=== PATIENT | female | born 1995 | race African-American/Black ===

== ENCOUNTER 2017-07-10 17:15 | Emergency (ER) | payer MEDICAID ==
[~2017-07-10] VITALS: Ht 165.1 cm; Wt 63.6 kg
[~2017-07-10 17:15] MED LIST: CEPHALEXIN500 M1 PO; IBU800 M1 PO; NORCOELIX PO; PERCOCET 325 MG1 TA2 PO; ZOFRAN ODT8 MG PO
[2017-07-10 17:30] VITALS: BP 161/101; PULSE 123; TEMP 98.9
== END 2017-07-10 19:41 | disposition home or self-care (01) ==
LOC: COL.ER 17:15
DX: J06.9 Acute upper respiratory infection, unspecified (principal); F17.210 Nicotine dependence, cigarettes, uncomplicated

== ENCOUNTER 2018-05-18 18:27 | Emergency (ER) | payer SELFPAY ==
[~2018-05-18] VITALS: Ht 165.1 cm; Wt 70.5 kg
[2018-05-18 19:08] VITALS: BP 137/92; TEMP 98.9
[2018-05-18 20:04] LABS: BASO % 0.3 % (0.0-2.0); EOS # 0.2 (0.0-0.7); EOS % 3.4 % (0-4.0); GRAN # 3.2 (1.4-6.5); GRAN % 52.2 % (42.2-75.2); HEMATOCRIT 32.3 % (35.0-45.0); HEMOGLOBIN 9.7 g/dl (12.0-15.0); LYMPH # 2.2 (1.2-3.4); LYMPH % 34.8 % (20.0-51.0); MEAN CELL VOLUME 73 fl (80.0-95.0); MEAN CORPUSCULAR HEMOGLOBIN 22 pg (26.0-32.0); MEAN CORPUSCULAR HGB CONC 30 g/dl (33.0-37.0); MEAN PLATELET VOLUME 9.4 fl (7.4-10.4); MONO # 0.6 (0.1-0.6); MONO % 9.1 % (1.7-9.3); PLATELET COUNT 397 K/mm3 (130-400); RED BLOOD COUNT 4.45 M/mm3 (4.10-5.30); REDCELL DISTRIBUTION WIDTH-CV 17.7 % (11.5-14.5)
[2018-05-18 20:18] LABS: ALBUMIN 3.9 gm/dL (3.5-5.0); BILIRUBIN,TOTAL 0.1 mg/dL (0.0-1.0); CALCIUM 9.1 mg/dL (8.4-10.2); CREATININE, serum 0.71 mg/dL (0.52-1.25); TOTAL PROTEIN 8.1 gm/dL (6.4-8.2)
[2018-05-18] MEDS ORDERED: CELEXA 20MG20 MG/TAB PO ×2 (20:23→21:15)
[2018-05-18] MEDS ORDERED: LEVOXYL0.088 MG PO (20:24)
[2018-05-18] MEDS ORDERED: ATARAX 25MG25 MG/TAB PO ×2 (20:25→21:22)
[2018-05-18 20:48] LABS: TSH w REFLEX 8.77 uIU/mL (0.465-4.680)
[2018-05-18] MEDS ORDERED: CELEXA10 MG PO (21:22)
[2018-05-18] MEDS ORDERED: SYNTHROID0.088 MG/T PO (21:22)
[2018-05-18 21:43] VITALS: PULSE 85
== END 2018-05-18 21:43 | disposition home or self-care (01) ==
LOC: COL.ER 18:27
PROVIDERS: Nurse Practitioner
DX: F32.9 Major depressive disorder, single episode, unspecified (principal); F41.9 Anxiety disorder, unspecified; M54.6 Pain in thoracic spine; E03.9 Hypothyroidism, unspecified; F17.210 Nicotine dependence, cigarettes, uncomplicated; Z23 Encounter for immunization

== ENCOUNTER 2018-06-04 07:27 | Emergency (ER) | payer SELFPAY ==
[~2018-06-04] VITALS: Ht 167.6 cm; Wt 70.5 kg
[~2018-06-04 07:27] MED LIST changes: +ATARAX 25MG25 MG/TAB PO; +CELEXA 20MG20 MG/TAB PO; +CELEXA10 MG PO; +LEVOXYL0.088 MG PO; +SYNTHROID0.088 MG/T PO
[2018-06-04 07:31] VITALS: TEMP 98.6
[2018-06-04] MEDS ORDERED: CELEXA 20MG20 MG/TAB PO (07:46)
[2018-06-04] MEDS ORDERED: SYNTHROID0.088 MG/T PO (07:46)
[2018-06-04] MEDS ORDERED: ATARAX 25MG25 MG/TAB PO (07:46)
[2018-06-04] MEDS ORDERED: CELEXA10 MG PO (07:46)
[2018-06-04 08:30] VITALS: BP 114/81; PULSE 93
== END 2018-06-04 08:30 | disposition home or self-care (01) ==
LOC: COL.ER 07:27
DX: M94.0 Chondrocostal junction syndrome [Tietze] (principal); Z76.0 Encounter for issue of repeat prescription

== ENCOUNTER 2018-06-29 09:42 | Emergency (ER) | payer SELFPAY ==
[~2018-06-29] VITALS: Ht 152.4 cm; Wt 68.2 kg
[2018-06-29 09:48] VITALS: BP 139/96; PULSE 106; TEMP 97.8
[2018-06-29] MEDS ORDERED: CEPHALEXIN500 M1 PO (10:04)
== END 2018-06-29 10:13 | disposition home or self-care (01) ==
LOC: COL.ER 09:42
DX: S01.511A Laceration without foreign body of lip, initial encounter (principal); Y04.8XXA Assault by other bodily force, initial encounter

== ENCOUNTER 2018-07-13 23:27 | Emergency (ER) | payer SELFPAY ==
[~2018-07-13] VITALS: Ht 167.6 cm; Wt 63.6 kg
[2018-07-13 23:45] VITALS: TEMP 98.6
[2018-07-14 00:42] LABS: COLLECTION METHOD CLEAN CATCH
[2018-07-14 00:51] LABS: MUCOUS Present /lpf; PH 5 (5-8); URINE APPEARANCE Hazy; URINE BACTERIA Occasional /hpf; URINE BILIRUBIN Negative (NEGATIVE); URINE BLOOD Negative (NEGATIVE); URINE COLOR Yellow; URINE GLUCOSE Negative (NEGATIVE); URINE KETONE Negative (NEGATIVE); URINE LEUKOCYTE ESTERASE Negative (NEGATIVE); URINE NITRATE Negative (NEGATIVE); URINE PROTEIN(semi-quant) 2+ (NEGATIVE); URINE RBC 0-2 /hpf
[2018-07-14 00:52] LABS: BASO % 0.2 % (0.0-2.0); EOS # 0.1 (0.0-0.7); GRAN # 2.9 (1.4-6.5); GRAN % 56.5 % (42.2-75.2); LYMPH # 1.6 (1.2-3.4); LYMPH % 31.7 % (20.0-51.0); MEAN CELL VOLUME 70 fl (80.0-100.0); MEAN CORPUSCULAR HGB CONC 29 g/dl (33.0-37.0); MEAN PLATELET VOLUME 9.7 fl (7.4-10.4); MONO # 0.5 (0.1-0.6); MONO % 9.4 % (1.7-9.3); PLATELET COUNT 295 K/mm3 (130-400); RED BLOOD COUNT 4.79 M/mm3 (4.10-5.30); REDCELL DISTRIBUTION WIDTH-CV 19.3 % (11.5-14.5)
[2018-07-14 00:54] LABS: TRICYCLIC ANTIDEPRESS URINE NEGATIVE
[2018-07-14 00:56] LABS: HEMATOCRIT 33.4 % (37.0-47.0); HEMOGLOBIN 9.7 g/dl (12.5-16.0); MEAN CORPUSCULAR HEMOGLOBIN 20 pg (27.0-31.0)
[2018-07-14 01:11] LABS: ALANINE AMINOTRANSFERASE 9 U/L (9-52); ALBUMIN 4.2 gm/dL (3.5-5.0); ALKALINE PHOSPHATASE 109 U/L (50-136); ANION GAP 7 mmol/L (7-16); AST,SGOT 23 U/L (15-37); BILIRUBIN,TOTAL 0.2 mg/dL (0.0-1.0); BLOOD UREA NITROGEN 7 mg/dL (7-17); CALCIUM 9.4 mg/dL (8.4-10.2); CARBON DIOXIDE 26 mmol/L (22-30); CHLORIDE 106 mmol/L (98-107); CREATININE, serum 0.71 mg/dL (0.52-1.25); GLUCOSE 93 mg/dL (74-106); POTASSIUM 3.4 mmol/L (3.4-5.0); SODIUM 138 mmol/L (137-145); TOTAL PROTEIN 8.4 gm/dL (6.4-8.2)
[2018-07-14 01:12] LABS: ACETAMINOPHEN < 10 ug/mL (10-30); ALCOHOL(ethanol),MEDICAL < 10 mg/dL; SALICYLATE < 1.0 mg/dL
[2018-07-14] MEDS ORDERED: ATARAX 25MG25 MG/TAB PO (02:05)
[2018-07-14] MEDS ORDERED: CELEXA10 MG PO (02:06)
[2018-07-14] MEDS ORDERED: SYNTHROID0.088 MG/T PO (02:06)
[2018-07-14 03:47] VITALS: BP 104/63; PULSE 84
[2018-07-14] MEDS ORDERED: MACROBID 1100 MG/CAP PO (03:50)
== END 2018-07-14 04:00 | disposition home or self-care (01) ==
LOC: COL.ER 23:27
PROVIDERS: Emergency Medicine
DX: S40.812A Abrasion of left upper arm, initial encounter (principal); F41.9 Anxiety disorder, unspecified; N39.0 Urinary tract infection, site not specified; F32.9 Major depressive disorder, single episode, unspecified; F17.210 Nicotine dependence, cigarettes, uncomplicated; X78.9XXA Intentional self-harm by unspecified sharp object, initial encounter

== ENCOUNTER 2018-11-12 12:35 | Emergency (ER) | payer SELFPAY ==
[~2018-11-12] VITALS: Ht 165.1 cm; Wt 63.6 kg
[~2018-11-12 12:35] MED LIST changes: +MACROBID 1100 MG/CAP PO
[2018-11-12 12:40] VITALS: BP 123/72; PULSE 85; TEMP 98.5
[2018-11-12 13:31] LABS: BASO % 0.2 % (0.0-2.0); EOS # 0.1 (0.0-0.7); EOS % 2.3 % (0-4.0); GRAN # 3.6 (1.4-6.5); GRAN % 64.4 % (42.2-75.2); HEMOGLOBIN 11.1 g/dl (12.5-16.0); LYMPH # 1.3 (1.2-3.4); LYMPH % 22.9 % (20.0-51.0); MEAN CELL VOLUME 77 fl (80.0-100.0); MEAN CORPUSCULAR HEMOGLOBIN 23 pg (27.0-31.0); MEAN CORPUSCULAR HGB CONC 31 g/dl (33.0-37.0); MEAN PLATELET VOLUME 9.5 fl (7.4-10.4); MONO # 0.6 (0.1-0.6); PLATELET COUNT 341 K/mm3 (130-400); RED BLOOD COUNT 4.74 M/mm3 (4.10-5.30); REDCELL DISTRIBUTION WIDTH-CV 16.1 % (11.5-14.5)
[2018-11-12 13:39] LABS: HEMATOCRIT 36.3 % (37.0-47.0)
[2018-11-12 13:41] LABS: ALANINE AMINOTRANSFERASE < 6 U/L (9-52); ALKALINE PHOSPHATASE 176 U/L (50-136); ANION GAP 9 mmol/L (7-16); AST,SGOT 26 U/L (15-37); BILIRUBIN,TOTAL 0.1 mg/dL (0.0-1.0); BLOOD UREA NITROGEN 7 mg/dL (7-17); CALCIUM 9.1 mg/dL (8.4-10.2); CARBON DIOXIDE 26 mmol/L (22-30); CHLORIDE 103 mmol/L (98-107); CREATININE, serum 0.71 (0.52-1.25); GLUCOSE 98 mg/dL (74-106); SODIUM 139 mmol/L (137-145); TOTAL PROTEIN 8.5 gm/dL (6.4-8.2)
[2018-11-12 13:59] LABS: MONOSCREEN NEGATIVE
[2018-11-12 14:08] LABS: STREP SCREEN NEGATIVE
[2018-11-12] MEDS ORDERED: AMOXICILLIN 8751 TAB PO (14:31)
== END 2018-11-12 13:32 | disposition home or self-care (01) ==
LOC: COL.ER 12:35
PROVIDERS: Physician Assistant
DX: R59.0 Localized enlarged lymph nodes (principal); F41.9 Anxiety disorder, unspecified; F17.210 Nicotine dependence, cigarettes, uncomplicated

== ENCOUNTER → 2019-10-23 | Outpatient (CLI) | payer SELFPAY ==
[~2019-10-23] MED LIST changes: +AMOXICILLIN 8751 TAB PO
[2019-10-23 20:36] VITALS: BP 122/86; PULSE 79
== END ==
LOC: COL.ER 20:16
DX: Z48.02 Encounter for removal of sutures (principal)

== ENCOUNTER 2019-12-21 14:53 | Emergency (ER) | payer SELFPAY ==
[~2019-12-21] VITALS: Ht 165.1 cm; Wt 61.4 kg
[2019-12-21 14:58] VITALS: TEMP 98.8
[2019-12-21 15:15] LABS: COLLECTION METHOD CLEAN CATCH
[2019-12-21 15:23] LABS: PH 7 (5-8); SQUAMOUS EPITHELIAL 0-2 /hpf; URINE APPEARANCE Clear; URINE BACTERIA Rare /hpf; URINE BILIRUBIN Negative (NEGATIVE); URINE BLOOD Negative (NEGATIVE); URINE COLOR Straw; URINE GLUCOSE Negative (NEGATIVE); URINE KETONE Negative (NEGATIVE); URINE LEUKOCYTE ESTERASE 3+ (NEGATIVE); URINE NITRATE Negative (NEGATIVE); URINE PROTEIN(semi-quant) Negative (NEGATIVE); URINE UROBILINOGEN Negative (NEGATIVE)
[2019-12-21] MEDS ORDERED: DIFLUCAN150 MG PO (16:41)
[2019-12-21] MEDS ORDERED: BACTRIM DS 8001 TAB PO (16:41)
[2019-12-21 16:45] VITALS: BP 121/93; PULSE 69
[2019-12-21] MEDS ORDERED: ZITHROMAX500 M2 PO (18:48)
== END 2019-12-21 16:47 | disposition home or self-care (01) ==
LOC: COL.ER 14:53
PROVIDERS: Family Medicine
DX: N76.0 Acute vaginitis (principal); B37.3 Candidiasis of vulva and vagina; N39.0 Urinary tract infection, site not specified; F17.210 Nicotine dependence, cigarettes, uncomplicated

== ENCOUNTER 2020-02-24 08:59 | Emergency (ER) | payer SELFPAY ==
[~2020-02-24] VITALS: Ht 165.1 cm; Wt 61.4 kg
[~2020-02-24 08:59] MED LIST changes: +BACTRIM DS 8001 TAB PO; +DIFLUCAN150 MG PO; +ZITHROMAX500 M2 PO
[2020-02-24 09:04] VITALS: BP 112/78; TEMP 99.1
[2020-02-24] MEDS ORDERED: DOXYCYCLINE 10100 MG PO (09:33)
[2020-02-24 09:52] VITALS: PULSE 98
== END 2020-02-24 09:53 | disposition home or self-care (01) ==
LOC: COL.ER 08:59
DX: N73.9 Female pelvic inflammatory disease, unspecified (principal); F17.210 Nicotine dependence, cigarettes, uncomplicated
CPT/HCPCS: J0696

== ENCOUNTER 2020-08-12 19:13 | Emergency (ER) | payer SELFPAY ==
[~2020-08-12] VITALS: Ht 165.1 cm; Wt 59.1 kg
[~2020-08-12 19:13] MED LIST changes: +DOXYCYCLINE 10100 MG PO
[2020-08-12 19:57] LABS: BASO % 0.1 % (0.0-2.0); EOS # 0.1 (0.0-0.7); EOS % 0.5 % (0-4.0); GRAN # 5.8 (1.4-6.5); GRAN % 62.9 % (42.2-75.2); HEMATOCRIT 39.1 % (37.0-47.0); HEMOGLOBIN 12.1 g/dl (12.5-16.0); LYMPH # 2.4 (1.2-3.4); LYMPH % 25.9 % (20.0-51.0); MEAN CELL VOLUME 76 fl (80.0-100.0); MEAN CORPUSCULAR HEMOGLOBIN 24 pg (27.0-31.0); MEAN CORPUSCULAR HGB CONC 31 g/dl (33.0-37.0); MEAN PLATELET VOLUME 9.3 fl (7.4-10.4); MONO % 10.4 % (1.7-9.3); PLATELET COUNT 315 K/mm3 (130-400); RED BLOOD COUNT 5.12 M/mm3 (4.10-5.30); REDCELL DISTRIBUTION WIDTH-CV 18.3 % (11.5-14.5)
[2020-08-12 20:10] LABS: ALBUMIN 4.1 gm/dL (3.5-5.0); BILIRUBIN,TOTAL 0.4 mg/dL (0.0-1.0); CALCIUM 9.4 mg/dL (8.4-10.2); CREATININE, serum 0.71 (0.52-1.25); POTASSIUM 3.7 mmol/L (3.4-5.0); TOTAL PROTEIN 8.7 gm/dL (6.4-8.2)
[2020-08-12 20:21] LABS: C-REACTIVE PROTEIN 13.7 mg/dL (0.0-0.9)
[2020-08-12 20:30] LABS: EOSINOPHIL 2 % (0-4); LYMPHOCYTE 24 % (20.0-51.0); NEUTROPHILS 64 % (42.0-75.2); PLATELET ESTIMATE NORMAL (NORMAL)
[2020-08-12 20:44] LABS: COLLECTION METHOD CLEAN CATCH
[2020-08-12 21:27] LABS: MUCOUS Present /lpf; PH 6 (5-8); SQUAMOUS EPITHELIAL 0-2 /hpf; URINE APPEARANCE Clear; URINE BACTERIA None Seen /hpf; URINE BILIRUBIN Negative (NEGATIVE); URINE BLOOD Negative (NEGATIVE); URINE COLOR Yellow; URINE GLUCOSE Negative (NEGATIVE); URINE KETONE Negative (NEGATIVE); URINE LEUKOCYTE ESTERASE Negative (NEGATIVE); URINE NITRATE Negative (NEGATIVE); URINE PROTEIN(semi-quant) 1+ (NEGATIVE); URINE UROBILINOGEN >=4.0 mg/dL (NEGATIVE)
[2020-08-12 22:19] VITALS: BP 110/62; PULSE 100; TEMP 99.5
== END 2020-08-12 22:30 | disposition home or self-care (01) ==
LOC: COL.ER 19:13
PROVIDERS: Nurse Practitioner
DX: R10.84 Generalized abdominal pain (principal); F17.210 Nicotine dependence, cigarettes, uncomplicated; Z20.822 Contact with and (suspected) exposure to COVID-19; Z32.02 Encounter for pregnancy test, result negative
CPT/HCPCS: J1170; J2405; J7030; Q9967

== ENCOUNTER 2020-08-14 00:02 | Emergency (ER) | payer SELFPAY ==
[~2020-08-14] VITALS: Ht 165.1 cm; Wt 59.1 kg
[2020-08-14 00:11] VITALS: TEMP 98.1
[2020-08-14 00:46] LABS: HEMATOCRIT 37.2 % (37.0-47.0); HEMOGLOBIN 11.5 g/dl (12.5-16.0); MEAN CELL VOLUME 76 fl (80.0-100.0); MEAN CORPUSCULAR HEMOGLOBIN 24 pg (27.0-31.0); MEAN CORPUSCULAR HGB CONC 31 g/dl (33.0-37.0); MEAN PLATELET VOLUME 9.1 fl (7.4-10.4); PLATELET COUNT 321 K/mm3 (130-400)
[2020-08-14 00:56] LABS: ALBUMIN 3.9 gm/dL (3.5-5.0); BILIRUBIN,TOTAL 0.4 mg/dL (0.0-1.0); CREATININE, serum 0.77 (0.52-1.25); POTASSIUM 3.9 mmol/L (3.4-5.0); TOTAL PROTEIN 8.4 gm/dL (6.4-8.2)
[2020-08-14 00:58] LABS: COLLECTION METHOD CLEAN CATCH
[2020-08-14 01:04] LABS: BAND 2 % (0-10); EOSINOPHIL 2 % (0-4); LYMPHOCYTE 19 % (20.0-51.0); MICROCYTOSIS 1+; NEUTROPHILS 72 % (42.0-75.2)
[2020-08-14 01:05] LABS: ANISOCYTOSIS 1+; OVALOCYTES 1+; PLATELET ESTIMATE NORMAL (NORMAL); POIKILOCYTOSIS 1+
[2020-08-14 01:06] LABS: TARGET CELLS 1+
[2020-08-14 01:15] LABS: MUCOUS Present /lpf; PH 5 (5-8); URINE APPEARANCE Hazy; URINE BACTERIA None Seen /hpf; URINE BILIRUBIN Positive (NEGATIVE); URINE BLOOD Negative (NEGATIVE); URINE COLOR Amber; URINE GLUCOSE Negative (NEGATIVE); URINE KETONE 1+ (NEGATIVE); URINE LEUKOCYTE ESTERASE Trace (NEGATIVE); URINE NITRATE Negative (NEGATIVE); URINE PROTEIN(semi-quant) 2+ (NEGATIVE); URINE RBC 0-2 /hpf; URINE UROBILINOGEN >=4.0 mg/dL (NEGATIVE)
[2020-08-14] MEDS ORDERED: NORCO 325 MG-51 TAB PO (02:33)
[2020-08-14 02:54] VITALS: BP 115/74; PULSE 85
[2020-08-14] MEDS ORDERED: ZITHROMAX500 M2 PO ×2 (07:51→11:32)
== END 2020-08-14 02:56 | disposition home or self-care (01) ==
LOC: COL.ER 00:02
PROVIDERS: Emergency Medicine
DX: R10.9 Unspecified abdominal pain (principal)
CPT/HCPCS: J1885; J2270; J2405; J3010; J7120

== ENCOUNTER 2020-09-04 18:05 | Emergency (ER) | payer SELFPAY ==
[~2020-09-04] VITALS: Ht 165.1 cm; Wt 58.2 kg
[~2020-09-04 18:05] MED LIST changes: +NORCO 325 MG-51 TAB PO
[2020-09-04 18:11] VITALS: TEMP 97.9
[2020-09-04 19:44] VITALS: BP 140/77; PULSE 68
[2020-09-05] MEDS ORDERED: ZOFRAN ODT4 MG PO (13:05)
[2020-09-05] MEDS ORDERED: NORCO 325 MG-51 TAB PO (13:05)
== END 2020-09-04 19:43 | disposition home or self-care (01) ==
LOC: COL.ER 18:05
DX: S60.221A Contusion of right hand, initial encounter (principal); W22.01XA Walked into wall, initial encounter

== ENCOUNTER 2020-09-05 09:32 | Emergency (ER) | payer SELFPAY ==
[~2020-09-05] VITALS: Ht 165.1 cm; Wt 59.1 kg
[2020-09-05 09:45] VITALS: TEMP 97.7
[2020-09-05 10:36] LABS: COLLECTION METHOD CLEAN CATCH
[2020-09-05 10:51] LABS: PH 8 (5-8); URINE APPEARANCE Hazy; URINE BACTERIA Rare /hpf; URINE BILIRUBIN Negative (NEGATIVE); URINE BLOOD Negative (NEGATIVE); URINE COLOR Yellow; URINE GLUCOSE Negative (NEGATIVE); URINE KETONE Negative (NEGATIVE); URINE LEUKOCYTE ESTERASE Negative (NEGATIVE); URINE NITRATE Negative (NEGATIVE); URINE PROTEIN(semi-quant) Negative (NEGATIVE); URINE RBC None Seen /hpf; URINE UROBILINOGEN Negative (NEGATIVE)
[2020-09-05 11:30] LABS: BASO % 0.2 % (0.0-2.0); EOS # 0.1 (0.0-0.7); EOS % 1.9 % (0-4.0); GRAN # 3.4 (1.4-6.5); GRAN % 63.6 % (42.2-75.2); HEMOGLOBIN 11.3 g/dl (12.5-16.0); LYMPH # 1.4 (1.2-3.4); LYMPH % 26.7 % (20.0-51.0); MEAN CELL VOLUME 76 fl (80.0-100.0); MEAN CORPUSCULAR HEMOGLOBIN 23 pg (27.0-31.0); MEAN CORPUSCULAR HGB CONC 31 g/dl (33.0-37.0); MEAN PLATELET VOLUME 9.7 fl (7.4-10.4); MONO # 0.4 (0.1-0.6); MONO % 7.4 % (1.7-9.3); PLATELET COUNT 276 K/mm3 (130-400); RED BLOOD COUNT 4.83 M/mm3 (4.10-5.30); REDCELL DISTRIBUTION WIDTH-CV 18.6 % (11.5-14.5)
[2020-09-05 11:31] LABS: HEMATOCRIT 36.7 % (37.0-47.0)
[2020-09-05 11:38] LABS: ALBUMIN 3.9 gm/dL (3.5-5.0); BILIRUBIN,TOTAL 0.4 mg/dL (0.0-1.0); CALCIUM 9.1 mg/dL (8.4-10.2); CREATININE, serum 0.7 (0.52-1.25); POTASSIUM 3.7 mmol/L (3.4-5.0); TOTAL PROTEIN 8.3 gm/dL (6.4-8.2)
[2020-09-05] MEDS ORDERED: NORCO 325 MG-51 TAB PO (13:05)
[2020-09-05] MEDS ORDERED: ZOFRAN ODT4 MG PO (13:05)
[2020-09-05 13:13] VITALS: BP 119/79; PULSE 75
== END 2020-09-05 13:13 | disposition home or self-care (01) ==
LOC: COL.ER 09:32
PROVIDERS: Emergency Medicine
DX: S60.221A Contusion of right hand, initial encounter (principal); R10.9 Unspecified abdominal pain; N83.201 Unspecified ovarian cyst, right side; X58.XXXA Exposure to other specified factors, initial encounter
CPT/HCPCS: J1885

== ENCOUNTER 2021-03-03 10:15 | Emergency (ER) | payer SELFPAY ==
[~2021-03-03] VITALS: Ht 165.1 cm; Wt 59.1 kg
[~2021-03-03 10:15] MED LIST changes: +ZOFRAN ODT4 MG PO
[2021-03-03 10:21] VITALS: BP 115/77; TEMP 98.4
[2021-03-03 11:24] VITALS: PULSE 75
== END 2021-03-03 11:24 | disposition home or self-care (01) ==
LOC: COL.ER 10:15
DX: M79.645 Pain in left finger(s) (principal); F17.200 Nicotine dependence, unspecified, uncomplicated

== ENCOUNTER 2021-05-07 10:06 | Emergency (ER) | payer SELFPAY ==
[~2021-05-07] VITALS: Ht 165.1 cm; Wt 63.6 kg
[2021-05-07 10:18] VITALS: TEMP 98.8
[2021-05-07 10:47] LABS: STREP SCREEN NEGATIVE
[2021-05-07 12:03] VITALS: BP 138/79; PULSE 103
== END 2021-05-07 12:04 | disposition home or self-care (01) ==
LOC: COL.ER 10:06
PROVIDERS: Nurse Practitioner
DX: K12.2 Cellulitis and abscess of mouth (principal); F17.200 Nicotine dependence, unspecified, uncomplicated; Z20.822 Contact with and (suspected) exposure to COVID-19
CPT/HCPCS: J1100

== ENCOUNTER 2021-09-25 16:00 | Emergency (ER) | payer SELFPAY ==
[~2021-09-25] VITALS: Ht 167.6 cm; Wt 66.4 kg
[2021-09-25 17:20] VITALS: BP 131/79; PULSE 68; TEMP 98.5
== END 2021-09-25 17:20 ==
LOC: COL.ER 16:00
DX: S66.911A Strain of unspecified muscle, fascia and tendon at wrist and hand level, right hand, initial encounter (principal); S00.83XA Contusion of other part of head, initial encounter; M54.2 Cervicalgia; Z98.890 Other specified postprocedural states; X50.1XXA Overexertion from prolonged static or awkward postures, initial encounter; W22.8XXA Striking against or struck by other objects, initial encounter

== ENCOUNTER 2022-02-26 08:23 | Emergency (ER) | payer SELFPAY ==
[~2022-02-26] VITALS: Ht 165.1 cm; Wt 65.9 kg
[2022-02-26 11:14] VITALS: BP 122/81; PULSE 78; TEMP 98.4
== END 2022-02-26 11:14 | disposition home or self-care (01) ==
LOC: COL.ER 08:23
DX: U07.1 COVID-19 (principal); F17.290 Nicotine dependence, other tobacco product, uncomplicated; Z28.310 Unvaccinated for COVID-19
CPT/HCPCS: J1885